=== PATIENT | male | born 1965 | race Caucasian/White ===

== ENCOUNTER 2019-10-25 12:39 | Emergency (ER) | payer SELFPAY ==
[~2019-10-25 12:39] MED LIST: Iopamidol 370 76% 125 ML VIAL FS ONE
[2019-10-25] MEDS ORDERED: Labetalol HCl 100 MG/20 ML VIAL ONE (12:55)
[2019-10-25 13:02] LABS: #Basophils 0.1 thou/uL (0.0-0.2); #Eosinphils 0.1 thou/uL (0.0-0.7); #Lymphocytes 1.7 thou/uL (1.20-3.40); #Monocytes 0.3 thou/uL (0.11-0.59); #Neutrophils 6.1 thou/uL (1.40-6.50); %Eosinophils 1.3 % (0.0-10.0); %Monocytes 3.8 % (0.0-10.0); %Neutrophils 73.9 % (42.0-75.0); Hemoglobin 16.7 g/dL (14.0-18.0); Mean Corpuscular HGB CONC 30.2 g/dL (32.0-36.0); Mean Corpuscular Hemoglobin 29.8 pg (27.0-31.0); Mean Corpuscular Volume 98.5 fL (78.0-98.0); Mean Platelet Volume 6.8 fL (7.4-10.4); Platelet Count 235 thou/uL (130-400); RBC Distribution Width 12.4 % (11.5-14.5); White Blood Cell (WBC) Count 8.3 thou/uL (4.8-10.8)
[2019-10-25 13:15] LABS: ALT (SGPT) 10 U/L (8-55); AST (SGOT) 22 U/L (5-34); Albumin 4.6 g/dL (3.5-5.0); Alkaline Phosphatase 107 U/L (40-110); Anion Gap 15 mmol/L (10-20); BUN (Urea Nitrogen) 10 mg/dL (8.4-25.7); Bilirubin, Total 0.7 mg/dL (0.2-1.2); Calc. Creatinine Clearance 0 mL/min (70-130); Calcium 9.6 mg/dL (7.8-10.44); Carbon Dioxide 24 mmol/L (22-29); Chloride 103 mmol/L (98-107); Estimated GFR-MDRD 81; Globulin 3.6 g/dL (2.4-3.5); Glucose 107 mg/dL (70-105); Potassium 4.6 mmol/L (3.5-5.1); Protein, Total 8.2 g/dL (6.0-8.3); Sodium 137 mmol/L (136-145)
[2019-10-25] MEDS ORDERED: Morphine 4 MG/ML VIAL ONE ×2 (13:26→15:37)
[2019-10-25] MEDS ORDERED: niCARdipine 25 MG/10 ML VIAL ONE (14:20)
--- NOTE | 2019-10-25 14:25 | CT ---
CTA CHEST WITH IV CONTRAST AND 3D POSTPROCESSING CTA ABDOMEN WITH IV CONTRAST AND 3D POSTPROCESSING: Date: 10/25/19 HISTORY: 54-year-old male with bilateral neck, shoulder, chest pain, and hypertension. FINDINGS: The thoracoabdominal aorta is well opacified without intimal flap to suggest dissection. There is a 4 .5 cm infrarenal abdominal aortic aneurysm. The ALESHIA arises from the superior aspect of the aneurysm. There is good flow in the SMA, ALESHIA, and the celiac axis and renal arteries. There is a patent stent in the proximal right renal artery. There is good contrast opacification in the pulmonary arterial vasculature without filling defects to suggest pulmonary embolism. No pleural or pericardial effusions are seen. There is a 10 mm irregular nodule in the left upper lob e. No free air or free fluid is seen in the abdomen. The liver, spleen, pancreas, and adrenal glands are normal. There is a 9.0 mm cyst in the superior pole of the right kidney. No calcified gallstones are seen. There are nonobstructing left renal calculi. Appendix is normal. There are degenerative changes in the thoracolumbar spine. IMPRESSION: 1. No evidence of aortic dissection or pulmonary embolism. 2. 4.5 cm infrarenal abdominal aortic aneurysm. 3. Nonobstructing left renal calculi. 4. 9.0 mm right renal cyst. 5. Irregular 1.0 cm left upper lobe lung nodule. Further evaluation with PET scan is recommended. CODE LN. POS: [id number]
[2019-10-25 14:47] LABS: Amphetamine Not Detected (NotDetected); Barbiturates Screen Not Detected (NotDetected); Benzodiazepine Screen Not Detected (NotDetected); Cocaine Metabolite Screen Not Detected (NotDetected); Medtox Control Line Valid? VALID (VALID); Methadone Not Detected (NotDetected); Methamphetamine Not Detected (NotDetected); Opiate Screen Detected (NotDetected); Oxycodone Screen Not Detected (NotDetected); Phencyclidine (PCP) Not Detected (NotDetected); THC/Cannabinoid Screen Detected (NotDetected); Tricyclic Screen Not Detected (NotDetected)
--- NOTE | 2019-10-25 15:21 | CT ---
CT BRAIN WITHOUT CONTRAST: HISTORY: Headache with hypertension FINDINGS: There is contrast in the vessels secondary to the CT performed earlier today. The possibility of suba rachnoid hemorrhage cannot be excluded on this exam. No evidence of acute infarct, enhancing mass, significant intraaxial hemorrhage, midline shift or abn ormal extra-axial fluid collections is seen. The ventricular size is appropriate and the basilar cisterns are patent. The bony calvarium is intact. There is mucosal disease in the paranasal sinuses. IMPRESSION: 1. No definite CT evidence of acute intracranial process or mass. 2. Paranasal sinus disease
== END 2019-10-25 15:57 | disposition short-term general hospital (02) ==
LOC: MADERS 12:39
DX: I20.0 Unstable angina (principal); I16.9 Hypertensive crisis, unspecified; I10 Essential (primary) hypertension; I25.2 Old myocardial infarction; K21.9 Gastro-esophageal reflux disease without esophagitis; N40.0 Benign prostatic hyperplasia without lower urinary tract symptoms; J44.9 Chronic obstructive pulmonary disease, unspecified; F17.210 Nicotine dependence, cigarettes, uncomplicated; Z95.5 Presence of coronary angioplasty implant and graft; Z79.899 Other long term (current) drug therapy
CPT/HCPCS: 36415; 70450; 71275; 72191; 74175; 80053; 80306; 83880; 84484; 85025; 93005; 96365; 96375; 96376; J2270; J7050; Q9967